=== PATIENT | female | born 1945 | race Caucasian/White ===

== ENCOUNTER 2016-06-13 14:43 | Observation (INO) | payer MEDICARE, OTHER ==
[2016-06-13] VITALS (7 sets, daily range): BP systolic 115–147; BP diastolic 52–79; PULSE 56–89; RESP 17–20; O2SAT 97–100
[~2016-06-13] VITALS: Ht 167.6 cm; Wt 48.9 kg
[2016-06-13] MEDS ORDERED: 0.9% Sodium Chloride 1,000 ML IV ONE (15:09)
--- NOTE | 2016-06-13 15:09 | ED.REPORT ---
HPI-General Illness Date of Service Jun 13, 2016 ED Provider: Ayush Cason MD The patient is a 70 year old female with an unknown history presents to the emergency department by EMS complaining of dizziness that has been ongoing over the last few days. She is unsure the exact onset. The patient lives alone and called 911 this morning from home. Medics report she has been rambling on about her siblings and pets. Her neighbor reported this is not like her. At this time she complains of difficulty breathing and dizziness. She also mentions a rash that she has been dealing with for the last year. The history is somewhat difficult to obtain. Nursing Notes Stated Complaint: DIZZINESS Chief Complaint: Neuro Symptoms/ Deficits Nursing Notes Reviewed: Yes Allergies: Coded Allergies: Sulfa (Sulfonamide Antibiotics) (Verified Allergy, Unknown, 06/13/16) No Active Prescriptions or Reported Meds General Time Seen by MD: 15:04 Chief Complaint Dizziness Hx Obtained From: Patient (limited), EMS Arrived By: Ambulance Sudden in Onset?: No Onset Occurred: Onset unknown Symptom Duration: Duration unknown Severity: Current: No pain currently Severity: Maximum: No pain Past Medical History Past Surgical History Back surgery Reports: Appendectomy, Hysterectomy Family History Noncontributory Smoking History Unknown if Ever Smoker Social History Other Social History: Lives alone, Local resident 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 Ambulatory Status Independent Review of Systems Unable to Obtain ROS Patient condition Full Review of Systems Respiratory: Reports: Shortness of breath Skin: Reports Rash Neurologic: Reports: Dizziness Psychiatric: Reports: Change mental status Physical Exam Vital Signs Vital Signs Date Time Temp Pulse Resp B/P Pulse Ox O2 Delivery O2 Flow Rate FiO2 06/13/16 17:30 36.5 66 18 123/54 97 Room Air 06/13/16 16:47 65 20 126/52 100 Room Air 06/13/16 16:11 82 19 115/79 98 Room Air 06/13/16 14:45 89 19 129/64 98 Room Air Initial VS: Reviewed Head / Eyes: Atraumatic, Normocephalic, PERRL ENT: Mucous membranes moist, Conjunctiva normal, No scleral icterus Neck: Supple, Non-tender, Full range of motion Extremities: No swelling, No tenderness Skin: Warm, Dry, No cyanosis Psychiatric: Mood/affect normal, Behavior normal, Normal thought content General/Constitutional: Awake, Alert Behavior: Positive: Anxious Head / Eyes: Atraumatic, Normocephalic, PERRL, EOMI Respiratory / Chest: Atraumatic, Breath sounds NL, Breath sounds = bilat, No respiratory distress, No rales, No rhonchi, No wheezing Cardiovascular: Heart rate NL, Regular rhythm, Heart sounds NL, No gallop, No murmurs, No rubs Abdomen: Atraumatic, Soft, Non-tender, No guarding, No rebound, BS normoactive , No distention Neurologic: Oriented X3, Speech NL Fairly pronounced intention tremor in upper extremities. No weakness in arms or legs. Face is symmetric. EOMI full. Interpretation & Diagnostics Lab Results Interpretation Result Diagram: 06/13/16 1515 06/13/16 1515 Test 06/13/16 15:15 06/13/16 16:48 White Blood Count 8.6th/mm3 (3.8-10.1) Red Blood Count 4.00mil/mm3 (3.90-5.20) Hemoglobin 11.9g/dL (12.0-15.6) Hematocrit 36.5% (35.0-46.0) Mean Corpuscular Volume 91.3fL (81-100) Mean Corpuscular Hemoglobin 29.8pg (27.0-35.0) Mean Corpuscular Hemoglobin Concent 32.6% (32.0-37.0) Red Cell Distribution Width 12.1% (12.3-15.4) Platelet Count 261bil/L (150-400) Neutrophils (%) (Auto) 62.0% (40-74) Lymphocytes (%) (Auto) 28.5% (14-46) Monocytes (%) (Auto) 7.9% (4-12) Eosinophils (%) (Auto) 0.9% (0-5) Basophils (%) (Auto) 0.5% (0-3) Prothrombin Time 10.3sec (8.1-12.5) Prothromb Time International Ratio 0.96ratio D-Dimer < 0.5mg/L FEU (<0.50) Sodium Level 141mEq/L (134-144) Potassium Level 3.5mEq/L (3.5-5.2) Chloride Level 99mEq/L (97-108) Carbon Dioxide Level 18mmol/L (18-29) Blood Urea Nitrogen 16mg/dL (8-27) Creatinine 0.71mg/dL (0.57-1.00) Estimat Glomerular Filtration Rate 117mL/min (>59) Glucose Level 127mg/dL (60-99) Calcium Level 9.6mg/dL (8.5-10.1) Total Bilirubin 0.5mg/dL (0.0-1.2) Aspartate Amino Transf (AST/SGOT) 23U/L (0-50) Alanine Aminotransferase (ALT/SGPT) 13U/L (0-32) Alkaline Phosphatase 61U/L (25-165) Troponin T < 0.010ug/L (0.0-0.011) Total Protein 7.4g/dL (6.4-8.4) Albumin 4.3g/dL (3.4-5.0) Urine Color Straw (YELLOW) Urine Appearance Clear (CLEAR,HAZY) Urine pH 7.0 (5.0-8.0) Urine Specific [place] 1.005 (1.003-1.035) Urine Protein Negativemg/dL (NEG,TRACE) Urine Glucose (UA) Negativemg/dL (NEGATIVE) Urine Ketones 40mg/dL (NEGATIVE) Urine Occult Blood Trace (NEGATIVE) Urine Nitrite Negative (NEGATIVE) Urine Bilirubin Negative (NEGATIVE) Urine Urobilinogen Normalmg/dL (NORMAL) Urine Leukocyte Esterase Negative (NEGATIVE) Urine RBC 0-2/hpf (0-2) Urine WBC 0-5/hpf (0-5) Urine Epithelial Cells Occasional/hpf (NONE-MOD) Urine Crystals None seen (NONE SEEN) Urine Bacteria None/hpf (NONE-FEW) Urine Hyaline Casts None/lpf (NONE) Urine Granular Casts None seen (NONE SEEN) Urine Waxy Casts None seen (NONE SEEN) Urine Red Blood Cell Casts None seen (NONE SEEN) Urine White Blood Cell Casts None seen (NONE SEEN) Urine Mucus None seen (None Seen) Urine Trichomonas None seen (NONE SEEN) Urine Yeast None (NONE SEEN) Urinalysis Comment None Urine Culture Reflexed Not indicated ECG Interpretation ECG Interpretation: Ectopic atrial rhythm Nonspecific IVCD Nonspecific T wave abnormalities, lateral leads Time: 15:09 Interpreted by: ED physician X-Ray Chest Interpretation Chest Xray Interpretation: IMPRESSION: No acute process. Dictated by: Mel Singh M.D. on 06/13/2016 at 15:55 Interpretation / Wet Read by: Interpret - Radiologist CT Head Interpretation IMPRESSION: No acute process. Dictated by: Mel Snigh M.D. on 06/13/2016 at 15:39 Study: Head CT no contrast Interpretation / Wet Read by: Interpret - Radiologist Re-Eval/Medical Decision Source of Hx: EMS Time of Eval: 16:53 Re-Evaluation/Progress Note: Rechecked the patient. Discussed workup and plan for road test. She will be discharged home if she passes her road test. All questions were addressed. Time of Eval: 16:57 Re-Evaluation/Progress Note: When the patient was getting up to complete the road test she became very nauseated and dizzy. Time of Eval: 16:58 Re-Evaluation/Progress Note: Discussed plan for admission with the patient. She agrees with plan. Consultation #1: Consulted With: food preparation worker Call Returned at: 16:56 Note: ED social welfare clerk will evaluate the patient. Consultation #2: Referral / Consult Name: Celestina Chairez DO Consulted With: Hospitalist Requested Call at: 16:58 Call Returned at: 17:18 Griddle Attendant: Will see patient, Agrees with eval, Agrees with plan, Referred to other consult Counseled Regarding: Diagnosis, Lab results, Need for admission Discharge & Departure Primary Impression: Nausea Additional Impressions: Rash Unsteady gait Disposition: ADMITTED TO HOSPITAL Discharge Condition All VS Reviewed: Yes Condition: Stable Care Transferred at: 18:01 Kameron Attestation Portions of this note were transcribed by Geeta Latham. I, Dr. Cason personally performed the history, physical exam and medical decision-making; I reviewed and confirmed the accuracy of the information in the transcribed note. Signed by: Kameron Nath, 06/13/2016 and 1725. Ayush Cason MD Jun 13, 2016 15:09 Geeta Latham Jun 13, 2016 15:12
[2016-06-13 15:19] LABS: BASOPHILS % (AUTO) 0.5 % (0-3); EOSINOPHILS % (AUTO) 0.9 % (0-5); MONOCYTES % (AUTO) 7.9 % (4-12); Mean Corpuscular Hemoglobin 29.8 pg (27.0-35.0); Mean Corpuscular Volume 91.3 fL (81-100); Platelet Count 261 bil/L (150-400)
[2016-06-13 15:29] LABS: INR 0.96 ratio
[2016-06-13 15:30] LABS: D-Dimer < 0.5 mg/L FEU (<0.50)
[2016-06-13 15:31] LABS: TROPONIN T < 0.010 ug/L (0.0-0.011)
--- NOTE | 2016-06-13 15:42 | DRSVH ---
PROCEDURE: CT BRAIN WITHOUT CONTRAST ([id number]) INDICATIONS: Stroke TECHNIQUE: Noncontrast 4.5 mm thick angled axial sections acquired from the foramen magnum to the vertex, with c oronal reformats. COMPARISON: None. FINDINGS: Image quality: Excellent. CSF spaces: Basal cisterns are patent. No extra-axial fluid collections. The ventricles are symmet jony in size and shape. Brain: No intracranial bleeds or masses. There is cerebral volume loss for age, with resultant vent ricular and sulcal prominence. There are periventricular and deep white matter chronic small vessel ischemic changes. There is intracranial internal carotid artery atherosclerosis. Skull and face: Calvarium and visualized facial bones appear intact, without suspicious lesions. Sinuses: Visualized sinuses and mastoids are clear. IMPRESSION: No acute process. Dictated by: Mel Singh M.D. on 06/13/2016 at 15:39 Approved by: Mel Singh M.D. on 06/13/2016 at 15:40
--- NOTE | 2016-06-13 15:57 | DRSVH ---
PROCEDURE: X-RAY CHEST ONE VIEW, PORTABLE ([id number]) INDICATIONS: altered loc TECHNIQUE: One view of the chest was acquired. COMPARISON: None. FINDINGS: Surgical changes and devices: None. Lungs and pleura: No pleural effusions or pneumothorax. Lungs are clear. Mediastinum: Mediastinal contours appear normal. Heart size is normal. Bones and chest wall: No suspicious bony lesions. Overlying soft tissues appear unremarkable. IMPRESSION: No acute process. Dictated by: Mel Singh M.D. on 06/13/2016 at 15:55 Approved by: Mel Singh M.D. on 06/13/2016 at 15:55
[2016-06-13 17:17] LABS: APPEARANCE,URINE CLEAR (CLEAR,HAZY); COLOR,URINE STRAW (YELLOW); OCCULT BLOOD,URINE TRACE (NEGATIVE); UROBILINOGEN,URINE NORMAL (NORMAL)
[2016-06-13] MEDS ORDERED: Ondansetron 2 mg/mL 2 mL Inj IVPUSH PRN (17:35)
[2016-06-13] MEDS ORDERED: Alum-Mag Hydrox-Simeth 30 mL Suspension PO PRN (17:35)
[2016-06-13] MEDS ORDERED: Polyethylene Glycol (PEG) 17 Gm Powder PO PRN (17:35)
[2016-06-13] MEDS ORDERED: HYDR28.470 TP (18:15)
[2016-06-13] MEDS ORDERED: [UNRECOGNIZED DRUG - CODE] TP (18:15)
[2016-06-13] MEDS ORDERED: PETR18JE3 TP (18:15)
[2016-06-13] MEDS ORDERED: PRAM177L22 TP (18:15)
--- NOTE | 2016-06-13 18:58 | PCM.HPMED ---
Subjective Date of Service Jun 13, 2016 Primary Provider: Admitting Physician: Celestina Chairez DO Primary Care Physician: Bright Attending Physician: Celestina Chairez DO Chief Complaint: Tremulousness, dizziness, nausea Allergies Coded Allergies: Sulfa (Sulfonamide Antibiotics) (Verified Allergy, Unknown, 06/13/16) PMH Social History Hx Alcohol Use: No (NONE X30-40 YEARS) Hx Substance Use: No Smoking Status: Unknown if Ever Smoker Exam Vital Signs Vital Sign - Last Date Time Temp Pulse Resp B/P Pulse Ox O2 Delivery O2 Flow Rate FiO2 06/13/16 17:30 36.5 66 18 123/54 97 Room Air Lab and Diagnostics Result Diagram: 06/13/16 1515 06/13/16 1515 Assessment & Plan HPI: 70-year-old female presents to the emergency room with the complaint of shakiness, feeling faint, lightheaded, and tremulous. The patient states that she has had a rash for the last year and feels that she may have been using too many topical drugs lately to treat the rash and itchiness. The patient states that the rash started a year ago while gardening and started on her Left hand and arm and then started to resolve but then spread to her trunk and extremities. The patient stated that for the last few days she felt faint and dizzy and has had nausea and vomiting with decreased appetite. The patient states that she is generally pretty active and walks 3 miles a day, but she was feeling so faint that she decided to call 911. 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 Please see HPI for perninent positives, all other systems are negatives. Physical Exam: GEN: Patient was awake, alert, responding appropriately to questions HEENT: PERRLA, EOMI, Neck soft supple, trachea midline, nomocephalic/atraumatic CV: +S1/S2, RRR, no murmurs auscultated Respiratory: CTAB, no wheezes, rales, rhonchi GI: +bowel sounds x4, soft, compressible, non TTP EXT: no c/c/e Neuro: CN II-XII grossly intact Psych: mood and affect were appropriate Skin: Macular papular diffuse rash, L posterior trapezius raised skin lesion Assessment and Plan Gait unsteadiness -Consult PT -F/u CBC, CMP, procalcitonin, lactic acid for possible viral causes -viral pcr -Repeat UA Skin Rash -Consult infectious disease -Possible skin biopsy of raised lesion -Consider medrol dose agapito and triamcinolone cream -Vistiril PO Q6hrs prn itchiness Gastroenteritis -Zofran prn -IV fluids prn -F/u electrolytes in the AM Tobacco abuse/drug dependence -Tobacco cessation was discussed with the patient -Nicotine replacement patch daily Diet -Regular DVT prophylaxis -Ambulation -SCDs Code Status: DNR/DNI Dispo: patient will most likely stay less than 2 midnights Code Status: Time spent Greater than 35 minutes Celestina Chairez DO Jun 13, 2016 17:43
--- NOTE | 2016-06-13 19:20 | NUR ---
arrival Pt arrived on [facility] at 1835, able to walk from [facility] to bed with minimal assistance. no complaints of pain, stated she was dizzy and a little nauseous. oriented to room and call light, dinner ordered and given to pt. report given to night RN.
[2016-06-13] MEDS: hydrOXYzine Pamoate 25 mg Capsule PO PRN (21:02)
--- NOTE | 2016-06-13 21:12 | NUR ---
"episode" pt. breathing very fast, shaking arms and legs, appears anxious, pt. states she has had similar episodes at home past few days. vital signs sats 100% pulse 75 bp 132/39
--- NOTE | 2016-06-13 21:15 | NUR ---
report given to aj [email or web address].RN
--- NOTE | 2016-06-14 01:50 | NUR ---
itching, anxious Called night hospitalist regarding pt condition. She continues to c/o itching all over, twitching and shooting sensation through her whole body. Prior vistaril was not effective. PT is very anxious at the time. She is unsteady to ambulate and requires SBA to bathroom.
[2016-06-14] MEDS ORDERED: diphenhydrAMINE 25 mg Capsule PO ONE (01:55)
[2016-06-14 02:22] VITALS: BP 127/74; O2SAT 56
[2016-06-14 02:24] VITALS: BP 126/77; PULSE 80
[2016-06-14 04:38] VITALS: BP 108/54; PULSE 50; RESP 16; O2SAT 99
[2016-06-14 06:11] LABS: Mean Corpuscular Hemoglobin 30.2 pg (27.0-35.0); Mean Corpuscular Volume 93.8 fL (81-100)
--- NOTE | 2016-06-14 06:42 | NUR ---
NOC Not much to report further about noc shift. After ativan was given she did sleep well, but her gait remained unsteady. Her itching did improve with the benadryl. SHe wants a games manager to see her while she is here. WIll defer this info to days.
[2016-06-14] MEDS ORDERED: KCl 20 mEq/100 mL(CENTRAL) 20 MEQ in IV Premix 1 EACH IV ONE (07:25)
[2016-06-14] MEDS ORDERED: Potassium Chloride Inj 20 MEQ in Dextrose 5% 250 ML IV ONE (07:45)
[2016-06-14] MEDS ORDERED: 0.9% Sodium Chloride 250 ML ONE (09:14)
[2016-06-14] MEDS: hydrOXYzine Pamoate 25 mg Capsule PO PRN ×2 (09:25→21:50)
--- NOTE | 2016-06-14 12:02 | NUR ---
Case Management: TRIPATHI given and explained at 11:40. Belle LYMANRN
[2016-06-14 13:01] VITALS: BP 103/58; PULSE 69; RESP 16; O2SAT 99
--- NOTE | 2016-06-14 14:51 | CONS ---
[address] [address] CONSULTATION REPORT PATIENT: DEYSI GUTIÉRREZ : 1945 MR#: [id number] ADMIT: 06/13/2016 JOB ID: [id number] DATE OF SERVICE: 06/14/[address] Chairez for this timely consult. REASON FOR CONSULTATION: Skin rash x1 year. HISTORY OF THE PRESENT ILLNESS: The patient is a 70-year-old woman who reports having no past medical history. She takes no meds. Has not seen a doctor in an extended period. States she has been feeling quite well. She comes to the ER though and was admitted yesterday with a history of three or four days of feeling faint, lightheaded, and having periods a near-syncope with visual changes. She says this started three or so days prior to admission and has been associated with some unexplained diarrhea. She has not noted any significant fevers, chills or sweats. She has not had any recent weight loss or mental status changes, and she denies any significant headaches. She likewise has no cough, shortness of breath, chest pain, but she did have the apparently self-limited diarrhea which started about June 10 and continued for three or so days and seemed to be associated at the same time with some nausea, some diminished appetite and oral intake, and these periods of lightheadedness and near-syncope. A second complaint is that about a year ago, while working in the garden, the patient developed a rash that started on her left forearm and then spread to involve multiple areas of the body, including both upper extremities, both lower extremities, and portions of the torso, but not the face and head. This rash is sometimes pruritic but does not pustulate or drain at all. She has never had a similar rash and is not aware of any family members or contacts who have had a similar problem. She has not traveled out of the area recently but does enjoy working in the garden. She lives alone. PAST MEDICAL HISTORY: 1. Rash for one year. 2. Endometriosis in the distant past. ALLERGIES: Include a SULFA allergy. SURGICAL HISTORY: Includes prior appendectomy and hysterectomy. 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 Lives in the [facility] at this point. She smokes a few cigarettes a day but does not drink alcohol or use illicit drugs. No recent travel. FAMILY HISTORY: Negative for tuberculosis in first-degree relatives. Her father of skin cancer-related complications and a brother at 67 of lymphoma. REVIEW OF SYSTEMS: Was performed. The patient, as stated, denies fevers, chills, sweats, headache, visual change, sore throat, cough, shortness of breath, or chest pain. As noted, starting about June 10 and continuing for roughly three days, she did have nausea, anorexia and diarrhea, which seemed to have ended. During this same period, she developed periods of near-syncope and lightheadedness. PHYSICAL EXAMINATION: Reveals an afebrile woman, temp 36.8, pulse 69, respiratory rate 16, blood pressure 103/58. She is saturating 99% on room air and not in any distress. Examination of the head reveals no trauma. The eyes are clear without any conjunctivitis or scleral icterus. The nose is normal. Oral cavity: No thrush or pharyngitis. Neck is quite supple without adenopathy or JVD. Lungs are clear. Cardiac tones: Regular rate and rhythm without significant murmur. The abdomen is soft and nontender. She does not have a Arceo catheter. There is no suprapubic tenderness. The joints are free of any synovitis and she has full range of motion. There is no peripheral edema. Peripheral pulses are intact and the patient's extremities are well perfused. Neurologically, she is alert, oriented x3. Moves all extremities and has normal motor strength. The skin is the abnormal part of the examine and it includes innumerable areas of mild erythema scattered randomly almost across the extremities, as well as portions of the upper torso. Some of these lesions have a scaly appearance to them, especially a couple on her forearms. One of these lesions is more plaque-like in nature and this is present on the left upper torso. The lesions have the appearance of psoriasis. LABORATORIES: Include white count 6800, platelet count 153. Creatinine 0.68. Lactic acid 0.6. LFTs normal. Urinalysis without white cells. Respiratory viral panel is pending. Chest x-ray normal and brain CT negative. IMPRESSION: There are two things going on here. One, I think is that the patient's gait unsteadiness and sense of imbalance is likely secondary to dehydration, as she has been experiencing nausea, anorexia, and some diarrhea in the days leading up to the symptoms of lightheadedness and near- syncope. More confusingly, I think, is the patient's skin rash, which I think represents psoriasis probably, though it is a very extensive and had a rather sudden onset late in life. The patient relates this to a scrape or a cut she got while gardening last spring, but it seems highly unusual that a rash developing from a plant contact such as that would disseminate basically around the body over the course of the year in sort of a slow but relentless progression. RECOMMENDATIONS: 1. No antibiotics. 2. I agree with the plans to do a skin biopsy on this patient at this time. 3. The patient should establish with a primary care doctor, as she is 70 years old, and even though she has no significant problems, it would behoove her to see a doctor once a year or so as she gets older to check on lovelace parameters and provide immunizations and other needed services. That primary care physician could then, of course, check up on the skin biopsy and go ahead and treat what is probably psoriasis, and if need be, refer to Dermatology. 4. This case discussed in person with Dr. Chairez. 5. ID will go ahead and sign off at this time. Thank you very much.
--- NOTE | 2016-06-14 14:54 | PCM.PROC ---
Procedure Note Date of Service: Jun 14, 2016 Pre Procedure Diagnosis: Psoriasis plaque Post Procedure Diagnosis: Psoriasis plaque Procedure: Skin shave biopsy. Provider and Product Technology Scientist: Provider: Dr. Prosper Dunbar Assisted and Supervised by: Dr. Celestina Chairez Indication for Procedure: Diagnostic biopsy of skin plaque NOS. Findings: Raised, 2x2cm, firm cutaneous nodule with scaling. Procedural Analgesia: 5cc 1% Lidocaine delivered subcutaneously. Procedure Details: Patient was prepped and draped in clean fashion using betadine prep swabs with patient in the R lateral decubitus position on the hospital bed. Anesthetic as noted above delivered with effective response noted by patient. Raised lesion was effectively manipulated using forceps to facilitate removal using a #10 scalpel. Hemostasis was obtained using manual pressure with gauze dressing and silver nitrate. Adhesive bandage was placed with rolled gauze for pressure dressing purposes. Surrounding skin was cleaned using alcohol wipe. Patient tolerated procedure well. Specimen: 2x2cm x 1/4-1/2 cm in depth biopsy skin specimen placed in sterile specimen container for transport to pathology for further diagnostic evaluation. Post Procedure Plan: General wound care: Avoid cleaning in the first 24 hours. Change bandaging daily. OK to let soapy warm water run over the wound, but do not scrub for 3-4 days. Follow up care: Follow up with primary care provider for wound check (this can occur at the same visit for hospital follow up). Patient should call PCP if notices any bleeding that cannot be controlled easily , and/or if experiences redness or swelling or pain in the area of the biopsy. Attending Statement The patient was seen and examined together and I was present for the procedure and assisted Dr. Wolf on 06/14/16 and I agree with the procedure note and plan as outlined in the note above . Prosper Wolf DO Jun 14, 2016 14:54 Celestina Chairez DO Jun 14, 2016 15:53
--- NOTE | 2016-06-14 15:02 | NUR ---
Social Work Note - Initial Assessment: D/A: See Initial Assessment, The Pt is a 70 y/o female that was admitted under observation for nausea, unsteady. The Pt's readmission score is 1. The Pt does not have a PCP and her insurance is Medicare with [employer] supplement, no LTC or VA benefits. EMR reviewed, SW met with the Pt and the Pt's [id number] Latesha Urban to explain role and discuss discharge. The Pt lives alone in a one story home in [place]. The Pt reported that her DPOA is her niece Cris Mora [phone], paperwork requested. The Pt is independent in her ADLs, continues to drive, and does not use any DME. No HH/SNF history noted. She is not a caregiver. PT rik completed, pending report. Infectious Disease also consulted. Pt reports concerns and questions regarding the care of her pets. Multiple options were discussed to include family, her Demo Specialist, and private pay care giving. Pt requested information about short-time term foster care information, SW contacted [employer] who referred SW to [employer]. SW placed call, left message regarding Pts question. SW also left the Pt's telephone number on [employer], as well. The Pts former PCP has retired, she is interested in seeking assistance for an [facility]. SW to contact [employer] [facility] about [facility] appointment. Pt denies any other SW needs at this time, SW will continue to follow. P: The Pt is not medically stable for discharge, PT eval report pending. Infectious Disease also consulted. SW will continue to follow. KEVIN Thorpe Market Research Executive DELL Ledbetter Addendum: 06/14/16 at 1503 by BETO HILTON Amended: Links added.
--- NOTE | 2016-06-14 15:23 | PCM.PNMED ---
Subjective Date of Service Jun 14, 2016 Subjective Patient was seen and examined at bedside today. Patient denies any chest pain, shortness of breath, nausea, vomiting, diarrhea. Patient states that she still is feeling dizzy however she states that it is improved but does complain of some blurry vision. The patient also still complains of itching but has not had her Vistaril at this time. Exam Vital Signs Vital Sign - Last Date Time Temp Pulse Resp B/P Pulse Ox O2 Delivery O2 Flow Rate FiO2 06/14/16 13:01 36.8 69 16 103/58 99 Room Air Intake and Output 06/13/16 06/13/16 06/14/16 Cumulative From/Thru 15:00 23:00 07:00 06/13/16 14:45 - 06/14/16 04:38 Intake Total 1200 ml 1200 ml Output Total 1550 ml 1550 ml Balance -350 ml -350 ml Intake Oral 1200 ml 1200 ml Output Urine Total 1550 ml 1550 ml # Bowel Movements 0 0 Exam Physical Exam: GEN: Patient was awake, alert, responding appropriately to questions HEENT: PERRLA, EOMI, Neck soft supple, trachea midline, nomocephalic/atraumatic CV: +S1/S2, RRR, no murmur auscultated Respiratory: Coarse breath sounds, no wheezes, rales, rhonchi GI: +bowel sounds x4, soft, compressible, non TTP EXT: no c/c/e Skin: Macular rash diffuse, left wrist plaque, left shoulder raised lesion with a plaque along the upper trapezius Neuro: CN II-XII grossly intact Psych: mood and affect were appropriate IVs and Medications Medications Reviewed: Medications were reviewed in detail Lab and Diagnostics Result Diagram: 06/14/16 0548 06/14/16 0548 Assessment & Plan 70-year-old female who presents with nausea, dizziness, rash who complained of unsteady gait. Gait unsteadiness -PT following and has noticed significant ataxia from the patient there are some concerns of cerebellar involvement -Follow-up MRI of the brain -Follow up Carotid ultrasound -Procalcitonin and lactic acid were within normal range l -viral pcr: Negative -Repeat UA pending Skin Rash possible psoriasis -Consult infectious disease: Feel the patient may be suffering from psoriasis -Raised lesion on the left upper trapezius area was biopsied today and sent to pathology - We will start patient on medrol dose agapito and triamcinolone cream -Continue Vistiril PO Q6hrs prn itchiness Gastroenteritis -Zofran prn -IV fluids prn -F/u electrolytes in the AM Hypokalemia -Replete with IV potassium 20 mEq one-time dose -We will follow up in the morning Diet -Regular DVT prophylaxis -Ambulation -SCDs Code Status: DNR/DNI Dispo: We will obtain an MRI and ultrasound of the carotids as the patient is having significant ataxia as reported by PT. We will also begin a course of steroids for the patient for her possible psoriasis. A biopsy of the patient's skin was done today and patient tolerated procedure well. If MRI of the brain is negative and carotid ultrasound is negative patient may be able to be discharged tomorrow however PT is recommending a long-term facility as the patient is considerably unsteady. VTE Mechanical Devices: Intermittant Pneumatic CD Time spent Greater than 35 minutes Celestina Chairez DO Jun 14, 2016 15:23
--- NOTE | 2016-06-14 16:01 | DRSVH ---
PROCEDURE: MRI BRAIN WITHOUT CONTRAST ([id number]) INDICATIONS: ataxia TECHNIQUE: Non-contrast axial T1 spin echo, axial T2 fast spin echo, sagittal and axial FLAIR, coronal T2 fast s pin echo, axial gradient echo, axial diffusion and ADC through the brain. COMPARISON: [facility], CT, CT BRAIN WO CON, 06/13/2016, 15:29. FINDINGS: Image quality: Excellent. CSF spaces: Ventricles appear symmetric in size and shape. Basal cisterns are patent. No extra-axi al fluid collections. Brain: No intracranial bleeds or mass effects. There is cerebral volume loss for age. There are pe riventricular and deep white matter chronic small vessel ischemic changes. Brainstem appears normal. Diffusion-weighted images show no acute ischemic insults. No chronic ischemic insults. Normal int ravascular flow voids are present. There is an approximate 5 mm focus of susceptibility artifact vinnie ntified within the parietal lobes bilaterally seen on series 8 image 32 and series 8 image 41. These are suspected to be automotive leasing sales representative of cavernous angiomas. Skull and face: Calvarial bone marrow is normal in signal. Orbits are normal. Sinuses: Sinuses and mastoids are clear. IMPRESSION: 1. No acute intracranial process. 2. Mild to moderate atrophy and chronic microvascular ischemic changes. Dictated by: Pennie Ashraf M.D. on 06/14/2016 at 15:57 Approved by: Pennie Ashraf M.D. on 06/14/2016 at 16:00
--- NOTE | 2016-06-14 16:08 | NUR ---
Scheduled [facility] 06/20/16 check in at 930AM with Updated KNOWLEDGE ARCHITECT
--- NOTE | 2016-06-14 18:07 | NUR ---
Itching, Biopsy Dressing Ordered PO Vistaril administered to patient for itching. Patient reports that Vistaril helps to relieve itching, states that it is at a tolerable level. Bandaid dressing to biopsy site clean, dry and intact. Patient states she feels a small amount of pain at the site, rates it at a 1 out of 10 on a scale of 1-10 with 10 being worst pain known to patient. Patient declines any pain medication or other treatment for pain, states pain is at tolerable level. Care is ongoing.
[2016-06-14 19:41] VITALS: BP 114/54; PULSE 62; RESP 20; O2SAT 97
--- NOTE | 2016-06-14 23:20 | NUR ---
Skin Pt was very itchy. She was found scratching her legs. Rash is apparent on her legs. Requested vistaril Pt currently has relief from the itching. Appears much improved. Will cont to monitor
[2016-06-15 04:16] VITALS: BP 137/64; PULSE 57; RESP 20; O2SAT 98
[2016-06-15] MEDS: hydrOXYzine Pamoate 25 mg Capsule PO PRN (04:19)
[2016-06-15 06:45] LABS: Mean Corpuscular Hemoglobin 29.9 pg (27.0-35.0); Mean Corpuscular Volume 93.8 fL (81-100)
[2016-06-15] MEDS ORDERED: predniSONE 20 mg Tablet PO ONE (07:00)
[2016-06-15] MEDS ORDERED: Triamcinolone 0.1% 30 Gm Cream TOPICAL SCH (08:30)
--- NOTE | 2016-06-15 09:23 | DRSVH ---
PROCEDURE: US BILATERAL DUPLEX DOPPLER IMAGING OF THE CAROTIDS ([id number]) INDICATIONS: ataxia, vertigo TECHNIQUE: Color and pulse Doppler interrogation was performed of both carotid systems, with image documentation and velocity measurements. COMPARISON: None. FINDINGS: All stenosis calculations are based on NASCET criteria. Right side: Brachial blood pressure: 103/58 mm Hg. Common Carotid Artery(Distal) PSV: 75.70 cm/s Internal Carotid Artery PSV- Proximal: 80.80 cm/s Mid-lon.30 cm/s Distal: 96.20 cm/s EDV - Proximal: 27.10 cm/s Mid-lon.10 cm/s Distal: 37 cm/s External Carotid Artery(Proximal) PSV: 101.20 cm/s ICA/CCA PSV ratio: 1.3 Lopez scale imaging description: Minimal plaque. Percent internal carotid artery stenosis: Less than 50%. Vertebral artery: Flow direction is antegrade. Left side: Brachial blood pressure: 103/54 mm Hg. Common Carotid Artery(Distal) PSV: 88.80 cm/s Internal Carotid Artery PSV - Proximal: 76.10 cm/s Mid-lon.30 cm/s Distal: 100.10 cm/s EDV - Proximal: 24 cm/s Mid-lon.20 cm/s Distal: 35.60 cm/s External Carotid Artery(Proximal) PSV: 151.90 cm/s ICA/CCA PSV ratio: 1.4 Lopez scale imaging description: Normal. Percent internal carotid artery stenosis: No stenosis.. Vertebral artery: Flow direction is antegrade. IMPRESSION: Less than 50% right internal carotid artery stenosis. Dictated by: Pro Ascencio [facility] Interpreted: Maira Rivera MD on 06/15/2016 at 9:22 Transcribed by: CAM on 06/15/2016 at 9:22 Approved by: Maira Rivera MD, PhD on 06/15/2016 at 17:01
[2016-06-15] MEDS ORDERED: hydrOXYzine Pamoate 25 mg Capsule PO SCH (10:00)
--- NOTE | 2016-06-15 12:30 | PCM.DIMED ---
Discharge Instructions Date of Service Jun 15, 2016 Dates of Hospitalization Jun 13, 2016 at 17:36 Discharge Diagnosis Discharge Diagnosis Unsteady gait secondary to benign positional vertigo Skin rash possibly secondary to psoriasis Gastroenteritis Hypokalemia (resolved) Diet No restrictions Activity Other (he may gradually return to her normal daily activities. Please follow the recommendations of physical therapy with using a cane and different positions that he should sleep in to avoid further dizziness) Call your provider Fever or Chills, Shortness of breath, Bleeding, Chest pain, Vomitting Patient Instructions Follow-up plan He should follow-up with the primary care physician as well as an ear nose and throat physician for possible vestibular therapy. Follow-up Provider: Shlomo Garcia DO Follow-up with PCP in: 1 week (an appointment has been made for you on 2016 at 9:30 please call the office for further instructions [phone]) Follow-up in: 2 weeks (Ear, nose and throat Physician. Please contact your primary care physician for recommended physicians) Celestina Chairez DO Jun 15, 2016 12:30
[2016-06-15] MEDS ORDERED: HYDR-3797 PO (12:39)
[2016-06-15] MEDS ORDERED: KEN1C TOPICAL (12:39)
[2016-06-15] MEDS ORDERED: Medrol dose pak (12:39)
--- NOTE | 2016-06-15 12:53 | PCM.DC.MED ---
Discharge Summary Date of Service Jun 15, 2016 Dates of Hospitalization Date of Hospital Admission Jun 13, 2016 at 17:36 Date of Discharge: Jun 15, 2016 Providers: Admitting Physician: Celestina Chairez DO Primary Care Physician: Bright Attending Physician: Celestina Chairez DO Diagnosis at Time of Discharge Diagnosis at Time of Discharge Unsteady gait secondary to benign positional vertigo Skin rash possibly secondary to psoriasis Gastroenteritis Hypokalemia (resolved) Consultations Infectious disease (Dr. Carroll) Procedures XRay, CTs & MRIs PROCEDURE: MRI BRAIN WITHOUT CONTRAST ([id number]) INDICATIONS: ataxia TECHNIQUE: Non-contrast axial T1 spin echo, axial T2 fast spin echo, sagittal and axial FLAIR, coronal T2 fast spin echo, axial gradient echo, axial diffusion and ADC through the brain. COMPARISON: [facility], CT, CT BRAIN WO CON, 06/13/2016, 15:29. FINDINGS: Image quality: Excellent. CSF spaces: Ventricles appear symmetric in size and shape. Basal cisterns are patent. No extra-axial fluid collections. Brain: No intracranial bleeds or mass effects. There is cerebral volume loss for age. There are periventricular and deep white matter chronic small vessel ischemic changes. Brainstem appears normal. Diffusion-weighted images show no acute ischemic insults. No chronic ischemic insults. Normal intravascular flow voids are present. There is an approximate 5 mm focus of susceptibility artifact identified within the parietal lobes bilaterally seen on series 8 image 32 and series 8 image 41. These are suspected to be loan representative of cavernous angiomas. Skull and face: Calvarial bone marrow is normal in signal. Orbits are normal. Sinuses: Sinuses and mastoids are clear. IMPRESSION: 1. No acute intracranial process. 2. Mild to moderate atrophy and chronic microvascular ischemic changes. Dictated by: Pennie Ashraf M.D. on 06/14/2016 at 15:57 Approved by: Pennie Ashraf M.D. on 06/14/2016 at 16:00 PROCEDURE: US BILATERAL DUPLEX DOPPLER IMAGING OF THE CAROTIDS ([id number]) INDICATIONS: ataxia, vertigo TECHNIQUE: Color and pulse Doppler interrogation was performed of both carotid systems, with image documentation and velocity measurements. COMPARISON: None. FINDINGS: All stenosis calculations are based on NASCET criteria. Right side: Brachial blood pressure: 103/58 mm Hg. Common Carotid Artery(Distal) PSV: 75.70 cm/s Internal Carotid Artery PSV- Proximal: 80.80 cm/s Mid-lon.30 cm/s Distal: 96.20 cm/s EDV - Proximal: 27.10 cm/s Mid-lon.10 cm/s Distal: 37 cm/s External Carotid Artery(Proximal) PSV: 101.20 cm/s ICA/CCA PSV ratio: 1.3 Lopez scale imaging description: Minimal plaque. Percent internal carotid artery stenosis: Less than 50%. Vertebral artery: Flow direction is antegrade. Left side: Brachial blood pressure: 103/54 mm Hg. Common Carotid Artery(Distal) PSV: 88.80 cm/s Internal Carotid Artery PSV - Proximal: 76.10 cm/s Mid-lon.30 cm/s Distal: 100.10 cm/s EDV - Proximal: 24 cm/s Mid-lon.20 cm/s Distal: 35.60 cm/s External Carotid Artery(Proximal) PSV: 151.90 cm/s ICA/CCA PSV ratio: 1.4 Lopez scale imaging description: Normal. Percent internal carotid artery stenosis: No stenosis.. Vertebral artery: Flow direction is antegrade. IMPRESSION: Less than 50% right internal carotid artery stenosis. Dictated by: Pro Ascencio [facility] Interpreted: Maira Rivera MD on 06/15/2016 at 9:22 Transcribed by: CAM on 06/15/2016 at 9:22 PROCEDURE: CT BRAIN WITHOUT CONTRAST ([id number]) INDICATIONS: Stroke TECHNIQUE: Noncontrast 4.5 mm thick angled axial sections acquired from the foramen magnum to the vertex, with coronal reformats. COMPARISON: None. FINDINGS: Image quality: Excellent. CSF spaces: Basal cisterns are patent. No extra-axial fluid collections. The ventricles are symmetric in size and shape. Brain: No intracranial bleeds or masses. There is cerebral volume loss for age , with resultant ventricular and sulcal prominence. There are periventricular and deep white matter chronic small vessel ischemic changes. There is intracranial internal carotid artery atherosclerosis. Skull and face: Calvarium and visualized facial bones appear intact, without suspicious lesions. Sinuses: Visualized sinuses and mastoids are clear. IMPRESSION: No acute process. Dictated by: Mel Singh M.D. on 06/13/2016 at 15:39 Approved by: Mel Singh M.D. on 06/13/2016 at 15:40 Brief History HPI: 70-year-old female presents to the emergency room with the complaint of shakiness, feeling faint, lightheaded, and tremulous. The patient states that she has had a rash for the last year and feels that she may have been using too many topical drugs lately to treat the rash and itchiness. The patient states that the rash started a year ago while gardening and started on her Left hand and arm and then started to resolve but then spread to her trunk and extremities. The patient stated that for the last few days she felt faint and dizzy and has had nausea and vomiting with decreased appetite. The patient states that she is generally pretty active and walks 3 miles a day, but she was feeling so faint that she decided to call 911. In the ED patient had a head CT and chest x-ray which were both negative Hospital Course The patient was brought in and assess for multiple vestibular complaints and pruritic rash. The patient was thought to have some sort of gastroenteritis causing the nausea and vomiting however this seems to have resolved. Patient did have a viral PCR which was negative. The patient did have a diffuse macular rash with 2 keratotic lesions noted. The patient had a 2 x 2 centimeter raised lesion with a plaque on her left upper trapezius posteriorly which a shave biopsy removed at this and sent to pathology for evaluation. The patient may have psoriasis or this could potentially be a skin cancer. The patient does have a family history of skin cancer and this needed to be ruled out. The patient has been instructed to follow-up with her primary care physician in regards to the results of this test. The patient was evaluated by physical therapy who noticed that the patient had an ataxic gait. An MRI was performed in order to rule out any cerebellar lesions/CVA in the MRI was negative. The patient did have a positive Dolores- Hallpike test which points to possible vestibular complaints. Patient should follow-up with her primary care physician who should consider doing further OMT to assist with these vestibular complaints as well as follow-up with ENT and possible vestibular physical therapy. Patient was given a Medrol Dosepak and triamcinolone cream which should help with the rash and the Medrol Dosepak may also help with the patient's vestibular complaints. Patient received 1 dose of steroids while present in the hospital 40 mg one-time dose and seems to be tolerating this well. Patient stated that she understood the recommendations made by physical therapy to use a cane for mobility as well as different positions that the patient should sleep in for her benign positional vertigo. The patient stated that she understood the instructions and would follow-up with her primary care. The patient was discharged home in stable condition. Hospital course Assessment and Plan Gait unsteadiness secondary to benign positional vertigo -Consult PT -F/u CBC, CMP, procalcitonin, lactic acid for possible viral causes -viral pcr -Repeat UA Skin Rash possibly secondary to psoriasis versus skin cancer -Consult infectious disease -Possible skin biopsy of raised lesion -Consider medrol dose agapito and triamcinolone cream -Vistiril PO Q6hrs prn itchiness Gastroenteritis -Zofran prn -IV fluids prn -F/u electrolytes in the AM Tobacco abuse/drug dependence -Tobacco cessation was discussed with the patient -Nicotine replacement patch daily Diet -Regular DVT prophylaxis -Ambulation -SCDs Code Status: DNR/DNI Exam Vital Signs (Last) Date Time Temp Pulse Resp B/P Pulse Ox O2 Delivery O2 Flow Rate FiO2 06/15/16 04:16 36.5 57 20 137/64 98 Room Air Exam Physical Exam: GEN: Patient was awake, alert, responding appropriately to questions HEENT: PERRLA, EOMI, Neck soft supple, trachea midline, nomocephalic/atraumatic , positive Dolores-Hallpike maneuver CV: +S1/S2, RRR, no murmur auscultated Respiratory: CTAB, no wheezes, rales, rhonchi GI: +bowel sounds x4, soft, compressible, non TTP EXT: no c/c/e Muscular skeletal: Gait mild ataxia Skin: Macular skin rash mildly improved, area of biopsy in the left upper trapezius area is clean dry and intact no signs of erythema or edema, positive Silvadene remnants in place. Neuro: CN II-XII grossly intact Psych: mood and affect were appropriate Test 06/13/16 15:15 06/13/16 16:48 06/14/16 05:48 06/15/16 06:12 Neutrophils (%) (Auto) 62.0% (40-74) Lymphocytes (%) (Auto) 28.5% (14-46) Monocytes (%) (Auto) 7.9% (4-12) Eosinophils (%) (Auto) 0.9% (0-5) Basophils (%) (Auto) 0.5% (0-3) Prothrombin Time 10.3sec (8.1-12.5) Prothromb Time International Ratio 0.96ratio D-Dimer < 0.5mg/L FEU (<0.50) Troponin T < 0.010ug/L (0.0-0.011) Urine Color Straw (YELLOW) Urine Appearance Clear (CLEAR,HAZY) Urine pH 7.0 (5.0-8.0) Urine Specific [place] 1.005 (1.003-1.035) Urine Protein Negativemg/dL (NEG,TRACE) Urine Glucose (UA) Negativemg/dL (NEGATIVE) Urine Ketones 40mg/dL (NEGATIVE) Urine Occult Blood Trace (NEGATIVE) Urine Nitrite Negative (NEGATIVE) Urine Bilirubin Negative (NEGATIVE) Urine Urobilinogen Normalmg/dL (NORMAL) Urine Leukocyte Esterase Negative (NEGATIVE) Urine RBC 0-2/hpf (0-2) Urine WBC 0-5/hpf (0-5) Urine Epithelial Cells Occasional/hpf (NONE-MOD) Urine Crystals None seen (NONE SEEN) Urine Bacteria None/hpf (NONE-FEW) Urine Hyaline Casts None/lpf (NONE) Urine Granular Casts None seen (NONE SEEN) Urine Waxy Casts None seen (NONE SEEN) Urine Red Blood Cell Casts None seen (NONE SEEN) Urine White Blood Cell Casts None seen (NONE SEEN) Urine Mucus None seen (None Seen) Urine Trichomonas None seen (NONE SEEN) Urine Yeast None (NONE SEEN) Urinalysis Comment None Urine Culture Reflexed Not indicated Lactic Acid Level 0.6mmol/L (0.4-2.0) Procalcitonin 0.02ng/mL (0.00-0.08) White Blood Count 6.2th/mm3 (3.8-10.1) Red Blood Count 3.55mil/mm3 (3.90-5.20) Hemoglobin 10.6g/dL (12.0-15.6) Hematocrit 33.3% (35.0-46.0) Mean Corpuscular Volume 93.8fL (81-100) Mean Corpuscular Hemoglobin 29.9pg (27.0-35.0) Mean Corpuscular Hemoglobin Concent 31.8% (32.0-37.0) Red Cell Distribution Width 12.3% (12.3-15.4) Platelet Count 203bil/L (150-400) Sodium Level 143mEq/L (134-144) Potassium Level 3.5mEq/L (3.5-5.2) Chloride Level 103mEq/L (97-108) Carbon Dioxide Level 26mmol/L (18-29) Blood Urea Nitrogen 15mg/dL (8-27) Creatinine 0.63mg/dL (0.57-1.00) Estimat Glomerular Filtration Rate 134mL/min (>59) Glucose Level 90mg/dL (60-99) Calcium Level 8.5mg/dL (8.5-10.1) Total Bilirubin 0.4mg/dL (0.0-1.2) Aspartate Amino Transf (AST/SGOT) 22U/L (0-50) Alanine Aminotransferase (ALT/SGPT) 11U/L (0-32) Alkaline Phosphatase 51U/L (25-165) Total Protein 6.0g/dL (6.4-8.4) Albumin 3.7g/dL (3.4-5.0) Discharge Medications Discharge Medications Hydroxyzine Pamoate (HydrOXYzine Pamoate) 25 Mg Capsule 25 MG PO Q6H Prescribed by: CELESTINA CHAIREZ DO Triamcinolone Acet (Triamcinolone Acetonide Cream) 1 Applic/0.25 Gm Cr 1 APPLIC TOPICAL BID Apply thin layer to affected area. DO NOT use on the face Prescribed by: CELESTINA CHAIREZ DO Miscellaneous Medications ([Medrol dose agapito]) Use as directed Prescribed by: CELESTINA CHAIREZ DO Followup Plan Follow-up plan He should follow-up with the primary care physician as well as an ear nose and throat physician for possible vestibular therapy. Discharge Diet: No restrictions Discharge Activity: Other (he may gradually return to her normal daily activities. Please follow the recommendations of physical therapy with using a cane and different positions that he should sleep in to avoid further dizziness) Patient Instructions Follow-up skin biopsy in outpatient clinic Follow-up Provider: Shlomo Garcia DO Follow-up with PCP in: 1 week (an appointment has been made for you on 2016 at 9:30 please call the office for further instructions [phone]) Follow-up in: 2 weeks (Ear, nose and throat Physician. Please contact your primary care physician for recommended physicians) Time spent Greater than 35 minutes copies to: Shlomo Garcia Precious L DO Jun 15, 2016 12:53
--- NOTE | 2016-06-15 13:15 | NUR ---
Social Work: Discharge Data: Pt is on day 2 of hospitalization. EMR reviewed, pt discussed in rounds. MD states pt ready for d/c today. PT states they worked with pt this morning and that their new recommendation is home. [facility] No d/c planning needs at this time. NP will continue to follow if needs arise. Assessment: Pt who is independent at baseline. Plan: Pt will d/c home via POV today. No d/c planning needs at this time. NP will continue to follow if needs arise. KEVIN Castañeda
--- NOTE | 2016-06-15 14:40 | NUR ---
discharged home with friend. Ambulating independently with cane, will picker operator cane on her way home, no longer dizzy or having visual disturbances. Will have f/u appt with PCP, at that time will get referral for out pt PT and also to be seen by ENT
--- NOTE | 2016-06-21 11:41 | PATH ---
SURGICAL PATHOLOGY Attending Physician:See Additional MD CASE STATUS: Signed Out PATIENT NAME: DEYSI GUTIÉRREZ PID: [id number] : 1945 DATE COLLECTED:06/14/2016 00:00 SPECIMEN: Skin, biopsy CLINICAL HISTORY: RASH, PLAQUE L85.8 1). LEFT UPPER TRAPEZIUS SKIN BIOPSY FINAL DIAGNOSIS: Upper Trapezius Skin, Biopsy: Invasive squamous cell carcinoma, well differentiated, involving the deep margin. ICD10: C44.521 [facility], 06/21/2016 NOTE: This case has been reviewed by Dr. Wei, dermatopathologist, who agrees with the diagnosis. GROSS DESCRIPTION: The specimen is received fresh in one container labeled with the patient's name, sublabeled "LSherif upper trapezius" and consists of a de luna-rousseau crusted dome-shaped ellipse of skin which measures 2.0 x 1.5 x 0.6 CM. The surgical margin is inked blue. The specimen is sectioned into 6 pieces, tips are submitted in cassette A. The remaining 4 pieces submitted in cassette B. 06/15/2016 [facility] ICD-9 CODES: CPT CODES: 1: 90132 Electronically Signed Out Roya Payne M.D.,[facility] [address], [place] [address] Technical component performed at [facility], [address], [place], [address]
== END 2016-06-15 14:10 | disposition home or self-care (01) ==
LOC: SED 14:43 → OSC 17:36
PROVIDERS: ADMIT Neuromusculoskeletal Medicine & OMM; ATTEND Neuromusculoskeletal Medicine & OMM
DX: C44.629 Squamous cell carcinoma of skin of left upper limb, including shoulder (principal); R26.81 Unsteadiness on feet; H81.10 Benign paroxysmal vertigo, unspecified ear; L40.9 Psoriasis, unspecified; K52.9 Noninfective gastroenteritis and colitis, unspecified; E87.6 Hypokalemia; F17.210 Nicotine dependence, cigarettes, uncomplicated; Z66 Do not resuscitate; N80.9 Endometriosis, unspecified
CPT/HCPCS: 11303; 36415; 70450; 70551; 71010; 80053; 81000; 83605; 84145; 84484; 85025; 85027; 85378; 85610; 87633; 88305; 93005; 93880; 96372; 96374; 96375; 96376; 97162; 97530; 99285; G0378; J2060; J2405; J3480; J7030; J7050; Q0177